=== PATIENT | male | born 1995 | race Asian ===

== ENCOUNTER 2017-09-12 14:55 | Outpatient (CLI) | payer OTHER ==
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
== END 2017-09-12 14:56 | disposition home or self-care (01) ==
LOC: SCSMRI 14:55
PROVIDERS: ATTEND Orthopaedic Surgery
DX: S62.001A Unspecified fracture of navicular [scaphoid] bone of right wrist, initial encounter for closed fracture (principal); S63.511A Sprain of carpal joint of right wrist, initial encounter; R93.7 Abnormal findings on diagnostic imaging of other parts of musculoskeletal system